=== PATIENT | male | born 1950 | race Caucasian/White ===

== ENCOUNTER 2019-03-03 05:20 | Inpatient (IN) | payer MEDICARE ==
[2019-03-03] VITALS (13 sets, daily range): BP systolic 91–127; BP diastolic 53–86
[~2019-03-03] VITALS: Ht 177.8 cm; Wt 87.6 kg
[~2019-03-03 05:20] MED LIST: APRESOLINE50 MG ORAL; ATORVASTATIN CA20 MG ORAL; GABAPENTIN300 MG ORAL; LEVOTHYROXINE75 MCG ORAL; METFORMIN HCL1000 M1 ORAL; METOPROLOL SUCC25 MG ORAL; NORCO 5-325 TA1 EACH ORAL
[2019-03-03] MEDS ORDERED: ceFAZolin 1gm IVPB IVPB ONE ×2 (06:00)
[2019-03-03] MEDS ORDERED: celeBREX 200mg Cap **SURGERY PATIENTS ONLY ORAL ONE (06:00)
[2019-03-03] MEDS ORDERED: oxyCONTIN 20mg tab ORAL ONE (06:00)
[2019-03-03] MEDS ORDERED: Duramorph PF 5mg/10ml amp ONE (06:19)
[2019-03-03] MEDS ORDERED: EPINEPHrine 1mg/1ml Amp ONE (06:19)
[2019-03-03] MEDS ORDERED: Bupivacaine 0.5% Inj 30 ml vial INJ ONE (06:20)
[2019-03-03] MEDS ORDERED: Alfentanil 2ml Inj ONE (06:23)
[2019-03-03] MEDS ORDERED: Bupivacaine w/Epi 0.5% 30ml Vial INJ ONE (06:27)
[2019-03-03] MEDS ORDERED: Bacitracin 50000 Units Vial ONE (06:28)
[2019-03-03] MEDS ORDERED: NeoSporin Gu Irrig 1ml Amp IRRIG ONE (06:28)
[2019-03-03] MEDS ORDERED: Tranexamic Acid 500 MG in NS 55 ML IV ONE (06:30)
[2019-03-03] MEDS ORDERED: Tranexamic Acid 1,000 MG in NS 65 ML IV ONE (06:30)
[2019-03-03] MEDS ORDERED: NS Irrig 2000ml IRRIG ONE (06:46)
[2019-03-03] MEDS ORDERED: Sodium Chloride 10ml vial INJ ONE (06:47)
[2019-03-03] MEDS ORDERED: Lidocaine 1% MPF 10mg/ml 5ml ONE (06:47)
[2019-03-03] MEDS ORDERED: Propofol 200mg/20ml IV ONE (06:47)
--- NOTE | 2019-03-03 06:48 | Pre-Procedure Note/Attestation ---
Pre-Procedure Note/Attestation Complete Prior to Procedure Planned Procedure: left Procedure Narrative: left total hip arthroplasty Indications for Procedure Pre-Operative Diagnosis: left hip arthritis Attestation I attest that I discussed the nature of the procedure; its benefits; risks and complications; and alternatives (and the risks and benefits of such alternatives ), prior to the procedure, with the patient (or the patient's legal claims representative). I attest that, if there was a reasonable possibility of needing a blood transfusion, the patient (or the patient's legal claims representative) was given the [facility] standardized written summary, pursuant to the Edmund Sravani Blood Safety Act ([place] Health and Safety Code # 1645, as amended). I attest that I re-evaluated the patient just prior to the surgery and that there has been no change in the patient's H&P, except as documented below: NONE Nicholas Templeton MD March 03, 2019 06:48
--- NOTE | 2019-03-03 06:53 | Anethesia Preoperative Eval ---
Anesthesia Pre-op PMH/ROS General Date of Evaluation: March 03, 2019 Time of Evaluation: 06:41 Anesthesiologist: Rj ASA Score: ASA 3 Mallampati Score Class I : Soft palate, uvula, fauces, pillars visible Class II: Soft palate, uvula, fauces visible Class III: Soft palate, base of uvula visible Class IV: Only hard plate visible Mallampati Classification: Class II Surgeon: Jareth Diagnosis: L Hip Pain Surgical Procedure: L Hip Toatal Arthroplasty Anesthesia History: none Family History: no anesthesia problems Allergies: Coded Allergies: No Known Allergies (Unverified , 03/02/19) Medications: see eMAR Patient NPO?: Yes NPO Date: March 02, 2019 NPO Time: 2229 Past Medical History Cardiovascular: Reports: HTN, other - HL Pulmonary: Reports: OUMAR Endocrine: Reports: DM, hypothyroidism Musculoskeletal/Integumentary: Reports: OA, edema - R Leg From Standing 16 Hours PSxH Narrative: Cholecystectomy, R Shoulder Arthroscopy Anesthesia Pre-op Phys. Exam Physician Exam Last Vital Signs Date Time Temp Pulse Resp B/P (MAP) Pulse Ox O2 Delivery O2 Flow Rate FiO2 03/03/19 06:25 Room Air 03/03/19 06:12 98.6 96 20 127/86 (100) 97 Constitutional: NAD Neurologic: CN 2-12 intact Cardiovascular: RRR Respiratory: CTA Gastrointestinal: S/NT/ND Airway Exam Mallampati Score: Class II MO: full ROM: full Teeth: intact Anesthesia Pre-op A/P Risk Assessment & Plan Assessment: ASA 3 Plan: Spinal, GA, SED Status Change Before Surgery: No Pre-Antibiotics Dru grams Ancef IV Given Within 1 Hr of Incision: Yes Time Given: 07:08 Goeffrey Leal MD March 03, 2019 06:53
[2019-03-03] MEDS ORDERED: Milk of Magnesia 30ml Ud ORAL PRN (07:00)
[2019-03-03] MEDS ORDERED: LR 1000ml ONE (07:00)
[2019-03-03] MEDS ORDERED: HYDROmorphone 1mg/ml Carpuject SUBQ PRN (07:00)
[2019-03-03] MEDS ORDERED: HYDROcodone/Acetamin 7.5/325 tab ORAL PRN ×2 (07:00→07:30)
[2019-03-03] MEDS ORDERED: NS Irrig 1000ml ONE (07:00)
[2019-03-03] MEDS ORDERED: Sterile Water Irrig 1000ml IRRIG ONE (07:00)
[2019-03-03] MEDS ORDERED: LR 1000ml 1,000 ML IVLG SCH (07:27)
[2019-03-03] MEDS ORDERED: fentaNYL 100 mcg/2 mL IV PRN (07:30)
[2019-03-03] MEDS ORDERED: Atropine Sulfate 0.4mg/ml inj IVP PRN (07:30)
[2019-03-03] MEDS ORDERED: LORazepam Inj 2mg/ml 1ml IV PRN (07:30)
[2019-03-03] MEDS ORDERED: Meperidine 50mg/ml Inj(FOR RIGORS ONLY) IVP PRN (07:30)
[2019-03-03] MEDS ORDERED: Labetalol 5mg/ml 20ml vial IV PRN (07:30)
[2019-03-03] MEDS ORDERED: Midazolam 2mg/2ml Inj IVP PRN (07:30)
[2019-03-03] MEDS ORDERED: Hydromorphone 0.5mg/0.5ml inj IVP PRN (07:30)
[2019-03-03] MEDS ORDERED: oxyCODONE HCL/Acetaminophen 5/325mg ORAL PRN (07:30)
[2019-03-03] MEDS ORDERED: DiphenhydrAMINE 50mg/ml Inj IVP PRN (07:30)
[2019-03-03] MEDS ORDERED: HYDROcodone/Acetamin 5/325 tab ORAL PRN ×2 (07:30→11:00)
[2019-03-03] MEDS ORDERED: ePHEDrine 50mg/ml Inj ONE (07:31)
--- NOTE | 2019-03-03 07:51 | Immediate Post-Op Evaluation ---
Immediate Post-Op Evalulation Immediate Post-Op Evalulation Procedure: L Hip Total Arthroplasty Date of Evaluation: March 03, 2019 Time of Evaluation: 09:42 IV Fluids: 1000 LR Blood Products: 0 Estimated Blood Loss: 75 Urinary Output: 200 Blood Pressure Systolic: 112 Blood Pressure Diastolic: 60 Pulse Rate: 86 Respiratory Rate: 16 O2 Sat by Pulse Oximetry: 1 Temperature (Fahrenheit): 99.1 Pain Score (1-10): 0 Nausea: No Vomiting: No Complications 0 Patient Status: awake, reacts, patent, none Hydration Status: adequate Dru grams Ancef IV Given Within 1 Hr of Incision: Yes Time Given: 07:08 Geoffrey Leal MD March 03, 2019 07:51
--- NOTE | 2019-03-03 09:25 | Brief Operative Note ---
Immediate Post Operative Note Operative Note Chief Complaint: left hip pain Pre-op Diagnosis: left hip arthritis Procedure: left total hip arthroplasty Post-op Diagnosis: same as pre-op Findings: consistent w/pre-op dx studies Surgeon: md kash Sewer Connector: rudy vasquez Anesthesiologist: md naomi Anesthesia: general Specimen: yes Complications: none Condition: stable Fluids: ns Estimated Blood Loss: minimal Drains: none Implant(s) used?: Yes Gege Vasquez March 03, 2019 09:25
--- NOTE | 2019-03-03 11:00 | NUR ---
NURSE NOTES: Received patient from HAYLEE Thorpe awake with out no distress LLE no sensation, and unable to move LE due to spinal blocks, surgical site dressing dry and intact with Ice pack, call light with in reach bed at low position locked, call light with in reach, family at bed side.
--- NOTE | 2019-03-03 11:19 | Diagnostic Imaging Report ---
Indication: Postop replacement Pelvic trauma and pain Findings: Single AP view of the pelvis was performed. Left total hip arthroplasty noted on the single view. Mehta catheter is present. There is no fracture or malalignment appreciated on this study. IMPRESSION: Limited evaluation after recent left total hip arthroplasty
--- NOTE | 2019-03-03 11:45 | Diagnostic Imaging Report ---
Indication: Intraoperative imaging right hip replacement Findings: Single AP view of the pelvis was performed. Intraoperative imaging of the pelvis demonstrating the right hip during total hip arthroplasty. The Scotty impression: Intraoperative imaging
[2019-03-03] MEDS: celeBREX 200mg Cap **SURGERY PATIENTS ONLY ORAL SCH (12:34)
[2019-03-03] MEDS: oxyCONTIN 20mg tab ORAL SCH ×2 (12:34→20:37)
[2019-03-03] MEDS: Docusate 100mg cap ORAL SCH ×2 (12:34→18:00)
--- NOTE | 2019-03-03 12:37 | NUR ---
CASE MANAGEMENT:REVIEW 68 YR OLD MALE HERE FOR SURGERY CC: LEFT HIP PAIN SI: LEFT HIP ARTHRITIS 98.6 96 20 127/86 97% ON RA IS: TO SURGERY FOR: LT TOTAL HIP ARTHROPLASTY IV ANCEF Q8HRS IVF@75/HR : TO MED/SURG 3 EAST DISCHARGE PLANNING PATIENT WILL REQUIRE HOME HEALTH FOR PHYSICAL THERAPY, WOUND CHECK AND OCCUPATIONAL THERAPY
--- NOTE | 2019-03-03 13:00 | NUR ---
NURSE NOTES: Patient has a full sensation and full strength no numbness and tingling will condition to monitor.
--- NOTE | 2019-03-03 14:33 | NUR ---
P.T Note: late entry 1245 P.T evaluation completed and treatment initiated POD #0 per ARABELLA protocol. Pt is awake, O x 4, vitals stable , no c/o nausea, nor pain nor dizziness however reports numbness and decreased sensation from L hip down to L foot secondary to spinal block/anaesthesia still in effect. Educated on proper mobility techniques to adhere with hip precautions prior to performing functional mobilities to include bed mobilities,transfers and gait/ambulation activities using the FWW. Pt currently required MIN A X 1 for bed mobilities, MIN A X 1 for transfers and MIN A X 1 for gait/ambulation activities using the FWW . Pt tolerated P.T evaluation/tx well w/o untoward incident. Vitals were stable during entire P.T session. POC will continue until [place]. Recommend home P.T at [place] with DME to include FWW since pt already has raised toilet seat with arm rest. Thank you for this referral.
[2019-03-03] MEDS: D5 1/2NS w/KCl 20mEq 1,000 ML IV SCH (15:46)
[2019-03-03] MEDS: ceFAZolin sod 2 GM in D5W 110 ML IV SCH ×2 (16:22→23:14)
[2019-03-03] MEDS ORDERED: Artificial Tears 1.4% Op Soln BOTH EYES PRN (17:15)
--- NOTE | 2019-03-03 17:45 | Operative Note - Dictated ---
DATE OF OPERATION: 03/03/2019 PREOPERATIVE DIAGNOSIS: Left hip end-stage arthritis. POSTOPERATIVE DIAGNOSIS: Left hip end-stage arthritis. PROCEDURE: Left total hip arthroplasty using a [place] system, size 6 Accolade 127 degree neck angle stem, size 52 mm acetabular cup with 2 dome screws and a 10 degree lipped ultra cross-linked poly and +0 36 mm femoral head. SURGEON: Nicholas Templeton M.D. CYBER SECURITY ANALYST: Gege Redd PA-C. ANESTHESIOLOGIST: Geoffrey Leal M.D. ANESTHESIA: Spinal anesthesia. ESTIMATED BLOOD LOSS: Less than 100 mL. COMPLICATIONS: None. BRIEF HISTORY: The patient is a pleasant 68-year-old gentleman who has had ongoing left hip arthritis. He was treated nonoperatively and failed. After full discussion of risks, benefits of surgery and complications associated with it including infection, bleeding, neurovascular complication, possibility of dislocation, possibility of leg length discrepancy, DVT, PEs, femur fractures, and continued pain and infection requiring resection arthroplasty, he opted for surgical treatment as described above. OPERATIVE PROCEDURE: The patient was brought to the operating room table. All pressure points well padded. Spinal anesthesia was induced. It should be noted that the patient was placed on the right lateral decubitus position with axillary roll and all pressure points well padded. He was stabilized with a pegboard. The left hip was then prepped and draped in usual sterile fashion. Preoperative antibiotics were given and tranexamic acid was given. Time-out was performed. At this point, the surgery was commenced. The standard posterior lateral incision to the hip was undertaken. The incision was taken through subcutaneous tissue. The tensor fascia was opened and gluteal fascia was opened. Charnley retractors were placed in. Short external rotators were then released and capsule was identified. The piriformis was identified. The piriformis was released and capsule was T'd and tagged for later repair. The hip was then dislocated. The femoral head was deformed and arthritic. A standard femoral neck cut was performed approximately 1 cm proximal to the lesser trochanter. The femoral head was removed and measured 48 mm. At this point, anterior acetabular retractors were placed and inferior acetabular retractors were placed. The labrum was resected and appropriate retractors were placed around the acetabulum. At this point, a reaming was performed initially medializing with a 45 mm reamer and subsequently with sequential reaming with approximately 40 degrees anteversion and [address] up to size 52 reamer. This provided excellent bleeding of the acetabulum. At this point, the acetabular trial was applied and it was very stable. Subsequently, a 52 mm hemispheric Trident cup with multiple dome screws was placed and malleted in in with the same anteversion and inclination as described previously. This provided excellent stability. Additional 2 dome screws, 1 measuring 20 mm, 1 measuring 25 mm were placed in without any complications. This provided security. Once this was completed, all wounds were thoroughly irrigated using copious amount of fluid. A ultra cross-linked polyethylene with 10 degree lip was then applied and was locked in without any complications. Once this was completed, the attention was then given to the femur. The retractors around the acetabulum was removed. A Antoine retractor was placed in to lift the femur up and the retractor was placed behind the lesser troch. Subsequently, using a [employer] cutter, the entry into the femur was lateralized. At this point, the intramedullary canal finder was used to find the canal. At this point, sequential broaching was performed from size [address] up to size 6. Size 6 provided excellent axial and rotational stability. Once this was completed, a 127 degree neck was then assembled and a 36 mm trial head with 0 neck length was applied. The entire construct was then reduced. The hip length appeared to be equal clinically. This was measured with contralateral knee and contralateral foot and heel. Subsequently, the range of motion was checked and appeared to be excellent flexion, excellent extension. The stability was checked at 0, 30 degrees, 45 degrees, and 90 degrees of flexion with internal rotation up to about 75 to 80 degrees and with no instability. At this point, the anterior stability was checked and appeared to be perfect. At this point, all wounds were thoroughly irrigated using copious amount of fluid. The intraoperative x-rays were obtained and the trial component and the acetabular component and the dome screws were in excellent position. The canal was filled with a size 6 Accolade broach. Leg lengths were measured from the lesser trochanter and considering the tilt to the pelvis, it appeared to be equal on x-rays as well. Therefore, all trial components were removed. The intramedullary canal was irrigated, acetabulum was irrigated, and all the soft tissues were irrigated using copious amounts of Simpulse irrigation. At this point, a size 6 Accolade stem was then placed in without any complication. Again, this provided excellent axial and rotational stability. The high offset stem was used. Subsequently, a +0 36 mm head was then applied on the Muir taper. Care was given to dry the Muir taper completely. The head was then malleted in and the stability was checked and rechecked, appeared to be perfect. At this point, the entire hip was then reduced and range of motion, leg lengths, and stability was checked and appeared to be excellent as described previously. The short external rotators were tied using #2 FiberWire suture through drill hole in the greater trochanter. The gluteal fascia and tensor fascia was closed using #1 Vicryl suture. The subcutaneous tissue was closed using 2-0 Vicryl suture. The skin was closed using 3-0 Monocryl suture. Sterile dressing was applied and the patient was taken to recovery room in stable condition. All lap counts and instrument counts were correct. Nicholas Templeton M.D. DR: SHIMA JOB#: [id number] CC:
[2019-03-03] MEDS ORDERED: Enoxaparin 40mg Inj SUBQ SCH (18:00)
[2019-03-03] MEDS: Aspirin Baby 81mg ORAL SCH (18:34)
[2019-03-03] MEDS: metFORMIN 500mg tab ORAL SCH (18:34)
[2019-03-03] MEDS: HYDROcodone/Acetamin 7.5/325 tab ORAL PRN (18:35)
[2019-03-03] MEDS: HydrALAZINE 50mg tab ORAL SCH (18:35)
--- NOTE | 2019-03-03 19:30 | NUR ---
NURSE NOTES: Report taken from HAYLEE Harper. Patient awake and in bed, A&Ox4. No signs of distress on room air, O2 available PRN. From surgery today, had spinal and general, patient has majority of sensation returned to Lt LE. Circulation good. IV site c/d/i and patent, running D5 1/2NS+20KCl at 75mls/hr. Surgical site dressing c/d/i. Mehta c/d/i and draining light yellow urine. BSC in room in case patient needs to have bowel movement. Bed in lowest position, call light within reach.
--- NOTE | 2019-03-03 19:52 | NUR ---
HAND-OFF: Report given to HAYLEE Wooten patient alert awake with out no distress.
[2019-03-04] VITALS: BP 96/59
[2019-03-04] MEDS: D5 1/2NS w/KCl 20mEq 1,000 ML IV SCH ×2 (00:50→07:10)
[2019-03-04] MEDS: HYDROcodone/Acetamin 5/325 tab ORAL PRN (01:40)
[2019-03-04 04:00] VITALS: BP 134/74
[2019-03-04] MEDS: Levothyroxine 25mcg tab ORAL SCH (05:54)
--- NOTE | 2019-03-04 07:25 | NUR ---
HAND-OFF: Report given to HAYLEE Harper. Patient is awake and in bed, VS stable. Total UO for night= 975cc.
[2019-03-04 07:30] LABS: BASOPHILS % (AUTO) 0.9 % (0.0-2.0); EOSINOPHILS % (AUTO) 4.2 % (0.0-3.0); HEMATOCRIT 29.3 % (42.0-52.0); LYMPHOCYTES % (AUTO) 8.7 % (20.0-45.0); MEAN CORPUSCULAR VOLUME 90 FL (80-99); MONOCYTES % (AUTO) 7.4 % (1.0-10.0); NEUTROPHILS % (AUTO) 78.7 % (45.0-75.0); PLATELET COUNT 174 K/UL (150-450); RED BLOOD COUNT 3.26 M/UL (4.70-6.10); RED CELL DISTRIBUTION WIDTH 12.6 % (11.6-14.8); WHITE BLOOD COUNT 5.6 K/UL (4.8-10.8)
[2019-03-04 07:39] LABS: ANION GAP 8 mmol/L (5-15); BLOOD UREA NITROGEN 22 mg/dL (7-18); CALCIUM 8.3 MG/DL (8.5-10.1); CARBON DIOXIDE 26 MMOL/L (21-32); CHLORIDE 106 MMOL/L (98-107); CREATININE 1.1 MG/DL (0.55-1.30); POTASSIUM 4.1 MMOL/L (3.5-5.1); SODIUM 140 MMOL/L (136-145)
--- NOTE | 2019-03-04 07:55 | NUR ---
NURSE NOTES: during shift change patient alert awake with out no distress, neuro check stable FC draining well abduction pillow in place DC FC order received will DC after patient finish breakfast
[2019-03-04 08:00] VITALS: BP 114/73
--- NOTE | 2019-03-04 08:08 | Orthopedic Progress Note ---
Orthopedic - Progress Note Subjective Symptoms: improved - worked well with PT yesterday Objective Laboratory Tests Test 03/04/19 07:05 White Blood Count 5.6 K/UL (4.8-10.8) Red Blood Count 3.26 M/UL (4.70-6.10) L Hemoglobin 10.0 G/DL (14.2-18.0) L Hematocrit 29.3 % (42.0-52.0) L Mean Corpuscular Volume 90 FL (80-99) Mean Corpuscular Hemoglobin 30.9 PG (27.0-31.0) Mean Corpuscular Hemoglobin Concent 34.2 G/DL (32.0-36.0) Red Cell Distribution Width 12.6 % (11.6-14.8) Platelet Count 174 K/UL (150-450) Mean Platelet Volume 7.3 FL (6.5-10.1) Neutrophils (%) (Auto) 78.7 % (45.0-75.0) H Lymphocytes (%) (Auto) 8.7 % (20.0-45.0) L Monocytes (%) (Auto) 7.4 % (1.0-10.0) Eosinophils (%) (Auto) 4.2 % (0.0-3.0) H Basophils (%) (Auto) 0.9 % (0.0-2.0) Sodium Level 140 MMOL/L (136-145) Potassium Level 4.1 MMOL/L (3.5-5.1) Chloride Level 106 MMOL/L (98-107) Carbon Dioxide Level 26 MMOL/L (21-32) Anion Gap 8 mmol/L (5-15) Blood Urea Nitrogen 22 mg/dL (7-18) H Creatinine 1.1 MG/DL (0.55-1.30) Estimat Glomerular Filtration Rate > 60 mL/min (>60) Glucose Level 141 MG/DL (74-106) H Calcium Level 8.3 MG/DL (8.5-10.1) L Last 24 Hour Vital Signs Date Time Temp Pulse Resp B/P (MAP) Pulse Ox O2 Delivery O2 Flow Rate FiO2 03/04/19 04:00 97.6 18 134/74 (94) 94 03/04/19 00:00 99.6 18 96/59 (71) 95 03/03/19 21:00 Room Air 03/03/19 20:00 98.7 77 20 99/55 (70) 95 03/03/19 19:05 98.0 03/03/19 18:35 106/61 03/03/19 16:31 98.0 78 17 106/61 (76) 95 03/03/19 13:04 98.4 03/03/19 12:00 98.1 85 18 109/60 (76) 98 03/03/19 11:30 97.2 83 19 108/81 (90) 95 03/03/19 10:50 98.1 85 18 99/58 (72) 96 03/03/19 10:20 98.4 88 20 102/62 100 Nasal Cannula 3 03/03/19 10:15 88 18 103/62 100 Nasal Cannula 3 03/03/19 10:05 92 20 91/61 100 Nasal Cannula 3 03/03/19 09:50 88 16 97/55 100 Nasal Cannula 3 03/03/19 09:40 87 17 100/55 100 Simple Mask 6 03/03/19 09:35 86 16 102/53 100 Simple Mask 6 03/03/19 09:31 99.1 86 16 112/60 100 Simple Mask 6 03/03/19 09:31 86 16 1 Intake and Output 03/03/19 03/04/19 18:59 06:59 Intake Total 1150 ml 450 ml Output Total 275 ml 550 ml Balance 875 ml -100 ml Intake Oral 450 ml IV Total 1150 ml Output Urine Total 200 ml 550 ml Estimated Blood Loss 75 ml Laboratory Tests Test 03/04/19 07:05 White Blood Count 5.6 K/UL (4.8-10.8) Red Blood Count 3.26 M/UL (4.70-6.10) L Hemoglobin 10.0 G/DL (14.2-18.0) L Hematocrit 29.3 % (42.0-52.0) L Mean Corpuscular Volume 90 FL (80-99) Mean Corpuscular Hemoglobin 30.9 PG (27.0-31.0) Mean Corpuscular Hemoglobin Concent 34.2 G/DL (32.0-36.0) Red Cell Distribution Width 12.6 % (11.6-14.8) Platelet Count 174 K/UL (150-450) Mean Platelet Volume 7.3 FL (6.5-10.1) Neutrophils (%) (Auto) 78.7 % (45.0-75.0) H Lymphocytes (%) (Auto) 8.7 % (20.0-45.0) L Monocytes (%) (Auto) 7.4 % (1.0-10.0) Eosinophils (%) (Auto) 4.2 % (0.0-3.0) H Basophils (%) (Auto) 0.9 % (0.0-2.0) Sodium Level 140 MMOL/L (136-145) Potassium Level 4.1 MMOL/L (3.5-5.1) Chloride Level 106 MMOL/L (98-107) Carbon Dioxide Level 26 MMOL/L (21-32) Anion Gap 8 mmol/L (5-15) Blood Urea Nitrogen 22 mg/dL (7-18) H Creatinine 1.1 MG/DL (0.55-1.30) Estimat Glomerular Filtration Rate > 60 mL/min (>60) Glucose Level 141 MG/DL (74-106) H Calcium Level 8.3 MG/DL (8.5-10.1) L Wound: clean, dry, intact Drains: none Neuro Status: normal Vascular Status: normal Additional Comments Xray reviewed Assessment Post-op Diagnosis POD 1 Procedure Performed left total hip arthroplasty Plan Plan: PT, discharge plan - likely home tomorrow, other - d/c tanesha d/c IVFs, DVT ppx with ASA BID and BL SCDs Gege Redd March 04, 2019 08:08
[2019-03-04] MEDS: Aspirin Baby 81mg ORAL SCH ×2 (08:38→17:46)
[2019-03-04] MEDS: oxyCONTIN 20mg tab ORAL SCH ×2 (08:38→20:31)
[2019-03-04] MEDS: Docusate 100mg cap ORAL SCH ×3 (08:38→17:46)
[2019-03-04] MEDS: metFORMIN 500mg tab ORAL SCH ×2 (08:38→17:46)
[2019-03-04] MEDS: Metoprolol Succinate XL 25mg tab ORAL SCH (08:39)
[2019-03-04] MEDS: celeBREX 200mg Cap **SURGERY PATIENTS ONLY ORAL SCH (08:39)
[2019-03-04] MEDS: HydrALAZINE 50mg tab ORAL SCH ×2 (08:39→17:46)
--- NOTE | 2019-03-04 09:00 | NUR ---
NURSE NOTES: FC removed patient tolerated the procedure well will monitor for voiding.
--- NOTE | 2019-03-04 10:41 | NUR ---
NURSE NOTES: AM scheduled pain medication given reported pain was 5/10 during reassessment pt. reported 6/10 and refused to walk with PT. pain reassessed and reported 7/10 surgical site Dilaudid 2mg given will continue to monitor.
--- NOTE | 2019-03-04 11:40 | NUR ---
*-* NO INSURANCE INFORMATION TO SEND CLINICALS OR REVIEWS *-* Addendum: 03/04/19 at 1500 by APURVA HUNT CM HEBERT:TUCKER P:[phone]
--- NOTE | 2019-03-04 11:45 | History and Physical Report ---
DATE OF ADMISSION: 03/03/2019 HISTORY: This is a 68-year-old [place] male who has past medical history of hypertension, history of renal failure and severe left hip arthritis with difficulty walking. He was treated conservatively and failed. The patient was seen by Dr. Templeton who recommended surgery. The patient had hip surgery on the left side. The patient is currently status post ORIF and progressing very well. The patient is currently walking. PAST MEDICAL HISTORY: Significant for severe arthritis. MEDICATIONS: See the list. ALLERGIES: NKA. PHYSICAL EXAMINATION: GENERAL: This is an elderly white male, currently in the bed, comfortable, eating lunch. VITAL SIGNS: Blood pressure is 130/70, pulse 74, and respirations 18. No fever. SKIN: Good skin turgor. HEENT: NAD. CHEST: Bilaterally clear. CARDIOVASCULAR: Regular rhythm. No gallop. No murmur. ABDOMEN: Soft. EXTREMITIES: Left hip tenderness. NEUROLOGIC: Generalized weakness. GENITOURINARY: Deferred. IMPRESSION: 1. Status post ORIF of left hip. 2. Degenerative arthritis. PLAN: 1. We will currently continue the DVT prophylaxis, Lovenox. 2. Continue pain medications. 3. PT and OT tomorrow. 4. Discussed with the charge nurse. Chris Guzmán M.D. DR: DENILSON JOB#: [id number] CC: RUTH
[2019-03-04 12:00] VITALS: BP 118/69
--- NOTE | 2019-03-04 14:23 | NUR ---
CASE MANAGEMENT:REVIEW 03/04/19 SI: POD #1 S/P LT TOTAL HIP ARTHROPLASTY 98.0 17 114/73 97% ON RA H/H-10.0/29.3 GLUCOSE+141 CA-8.3 IS: IVF@75/HR TOPROL XL PO QD SYNTHROID PO QD LIPITOR PO QHS ASA PO QD NEURONTIN PO BID HYDRALAZINE PO BID METFORMIN PO BID OXYCONTIN PO Q12 : MED/SURG STATUS 3 EAST
--- NOTE | 2019-03-04 14:30 | NUR ---
DISCHARGE PLANNING STRIP DEBURRER [place] GET [place] [facility] [place] DIS[place] PLANNING ON GOING Addendum: 03/04/19 at 1502 by LUPE VÁSQUEZ LVN LVN SPOKE WITH O STRIP DEBURRER TUCKER (T: [phone]) WHO STATED PATIENT WILL BE REFERRED TO [facility] TUCKER REQUESTED HOME HEALTH ORDER BE FAXED TO HER SO SHE CAN START WORKING ON THE HOME HEALTH
[2019-03-04] MEDS: HYDROcodone/Acetamin 7.5/325 tab ORAL PRN (15:18)
--- NOTE | 2019-03-04 15:45 | 48 Hour Post Anesthesia Eval ---
Post Anesthesia Evaluation Procedure: L Hip Total Arthroplasty Date of Evaluation: March 04, 2019 Time of Evaluation: 15:44 Blood Pressure Systolic: 116 0: 72 Pulse Rate: 68 Respiratory Rate: 20 Temperature (Fahrenheit): 97.8 O2 Sat by Pulse Oximetry: 99 Airway: patent Nausea: No Vomiting: No Pain Intensity: 3 Hydration Status: adequate Cardiopulmonary Status: stable Mental Status/LOC: patient returned to baseline Follow-up Care/Observations: n/a Post-Anesthesia Complications: none Follow-up care needed: N/A Edin Cortes MD March 04, 2019 15:45
[2019-03-04 16:29] VITALS: BP 115/72
--- NOTE | 2019-03-04 17:59 | NUR ---
NURSE NOTES: Pain subsiding per pt. reported 4/10 while on bed, voiding no pain or burning reported during urination. neuro chek stable.
--- NOTE | 2019-03-04 19:30 | NUR ---
NURSE NOTES: Report taken from HAYLEE Harper. Patient is awake and in bed, A&Ox4. No signs of distress on room air. Stating that since he has gotten out of bed, the pain has become worse, 05/06. Saw PT today and stated that he was struggling afterwards, but wants to continue to try and get out of bed to use bathroom. patient is voiding regularly. Surgical site c/d/i. Small area of erythema noted near the left knee. 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 IV site c/d/i and patent, running D5 1/2 NS+20KCl at 75mls/hr. Bed in lowest position, call light within reach.
--- NOTE | 2019-03-04 19:40 | NUR ---
HAND-OFF: Report given to HAYLEE Wooten patient stable condition.
[2019-03-04 20:00] VITALS: BP 135/76
--- NOTE | 2019-03-04 20:15 | Progress Note ---
DATE: 03/04/2019 SUBJECTIVE: This is a 68-year-old male, who has had ORIF of the left hip. The patient had physical therapy this morning and had a lot of pain. OBJECTIVE: GENERAL: Alert and oriented x3, in no distress. VITAL SIGNS: Stable. CHEST: Bilaterally clear. CARDIOVASCULAR: Regular rhythm. No gallop. No murmur. ABDOMEN: Soft. Positive bowel sounds. Nontender. EXTREMITIES: No CCE. NEUROLOGICAL: Generalized weakness. ASSESSMENT: 1. Status post ORIF. 2. Hypertension. 3. Degenerative arthritis. PLAN: 1. We will currently continue regular diet. 2. Continue morphine. 3. Continue pain management. 4. Continue [place]. 5. PT and OT. 6. Discussed with the patient and charge nurse. Chris Guzmán M.D. DR: DENILSON JOB#: [id number] CC: RUTH
[2019-03-05] VITALS: BP 131/80
[2019-03-05] MEDS: D5 1/2NS w/KCl 20mEq 1,000 ML IV SCH (01:47)
[2019-03-05] MEDS: HYDROcodone/Acetamin 5/325 tab ORAL PRN ×3 (01:47→22:49)
[2019-03-05 04:00] VITALS: BP 121/66
[2019-03-05] MEDS: Levothyroxine 25mcg tab ORAL SCH (05:52)
--- NOTE | 2019-03-05 07:19 | Orthopedic Progress Note ---
Orthopedic - Progress Note Subjective Symptoms: c/o post-op hip pain Additional Comments Did ok yesterday with PT. Slow with ambulation Objective Last 24 Hour Vital Signs Date Time Temp Pulse Resp B/P (MAP) Pulse Ox O2 Delivery O2 Flow Rate FiO2 03/05/19 04:00 98.6 84 17 121/66 (84) 96 03/05/19 00:00 98.5 84 17 131/80 (97) 100 03/04/19 21:00 Room Air 03/04/19 20:00 98.7 89 19 135/76 (95) 100 03/04/19 17:46 115/72 03/04/19 16:29 98.2 83 18 115/72 (86) 96 03/04/19 15:45 68 20 99 03/04/19 12:00 98.2 80 17 118/69 (85) 95 03/04/19 11:06 97.6 03/04/19 09:00 Room Air 03/04/19 08:39 97 114/73 03/04/19 08:39 114/73 03/04/19 08:00 98.0 17 114/73 (87) 97 Intake and Output 03/04/19 03/05/19 19:00 07:00 Intake Total 1200 ml Output Total 700 ml 350 ml Balance -700 ml 850 ml Intake Oral 1200 ml Output Urine Total 700 ml 350 ml # Voids 1 1 Laboratory Tests Test 03/05/19 06:00 White Blood Count Pending Red Blood Count Pending Hemoglobin Pending Hematocrit Pending Mean Corpuscular Volume Pending Mean Corpuscular Hemoglobin Pending Mean Corpuscular Hemoglobin Concent Pending Red Cell Distribution Width Pending Platelet Count Pending Mean Platelet Volume Pending Neutrophils (%) (Auto) Pending Lymphocytes (%) (Auto) Pending Monocytes (%) (Auto) Pending Eosinophils (%) (Auto) Pending Basophils (%) (Auto) Pending Wound: clean, dry Drains: none Neuro Status: normal Assessment Post-op Diagnosis Left ARABELLA Plan Plan: PT, pain management, discharge plan Additional Comments Doing well. Discussed discharge today vs tomorrow and patient would like to see how he does with PT today for possible discharge. Will check again at 2pm. If not discharged today, then will discharge tomorrow. DVT prophylaxis with ASA and jessica hose and sequentials. No Lovenox necessary Nicholas Templeton MD March 05, 2019 07:19
[2019-03-05 07:22] LABS: HEMATOCRIT 31.9 % (42.0-52.0); HEMOGLOBIN 10.9 G/DL (14.2-18.0); MEAN CORPUSCULAR VOLUME 90 FL (80-99); PLATELET COUNT 196 K/UL (150-450); RED BLOOD COUNT 3.54 M/UL (4.70-6.10); RED CELL DISTRIBUTION WIDTH 12.8 % (11.6-14.8); WHITE BLOOD COUNT 6.3 K/UL (4.8-10.8)
--- NOTE | 2019-03-05 07:22 | NUR ---
HAND-OFF: Report given to HAYLEE Alfonso. Patient awake and in bed. VS stable.
--- NOTE | 2019-03-05 07:30 | NUR ---
NURSE NOTES: Patient lying in bed awake. Complain of pain 7/10 on surgical site. Will administer pain medication as ordered. Surgical dressing intact and dry. IV dressing intact and dry. Bed lowest position. Call light within reach. Will continue to monitor.
[2019-03-05 08:00] VITALS: BP 143/81
--- NOTE | 2019-03-05 08:34 | NUR ---
CASE MANAGEMENT:REVIEW 03/05/19 SI: POD #2 S/P LT TOTAL HIP ARTHROPLASTY 98.6 84 17 121/66 96% ON RA H/H-10.9/31.9 IS: IVF@75/HR TOPROL XL PO QD SYNTHROID PO QD LIPITOR PO QHS ASA PO QD NEURONTIN PO BID HYDRALAZINE PO BID METFORMIN PO BID OXYCONTIN PO Q12 : MED/SURG STATUS 3 [facility] PL[facility]: PATIENT TO HAVE 2 PT SESSIONS TODAY (2ND EARLY AFTERNOON) PLEASE CONTACT DR TORRES AROUND 2PM TO SEE IF PATIENT HAS DONE WELL TO BE DISCHARGED TODAY. OTHERWISE DISCHARGE TOMORROW AM
[2019-03-05] MEDS: Aspirin Baby 81mg ORAL SCH ×2 (08:46→17:45)
[2019-03-05] MEDS: Metoprolol Succinate XL 25mg tab ORAL SCH (08:47)
[2019-03-05] MEDS: Docusate 100mg cap ORAL SCH ×3 (08:47→17:45)
[2019-03-05] MEDS: oxyCONTIN 20mg tab ORAL SCH ×2 (08:47→20:25)
[2019-03-05] MEDS: celeBREX 200mg Cap **SURGERY PATIENTS ONLY ORAL SCH (08:47)
[2019-03-05] MEDS: metFORMIN 500mg tab ORAL SCH ×2 (08:48→17:45)
[2019-03-05] MEDS: HydrALAZINE 50mg tab ORAL SCH ×2 (08:48→17:45)
[2019-03-05 12:00] VITALS: BP 111/58
--- NOTE | 2019-03-05 14:30 | NUR ---
NURSE NOTES: Spoke to regarding patient and ok to discharge patient tomorrow.
[2019-03-05 16:00] VITALS: BP 110/70
--- NOTE | 2019-03-05 19:20 | NUR ---
HAND-OFF: Report given to Jacki LEACH. Patient in stable condition.
--- NOTE | 2019-03-05 19:32 | NUR ---
NURSE NOTES: Received patient awake,alert,verbal,resting in bed comfortably without complaints.
[2019-03-05 20:00] VITALS: BP 135/69
[2019-03-06] VITALS: BP 132/72
[2019-03-06 04:00] VITALS: BP 131/67
[2019-03-06] MEDS: Levothyroxine 25mcg tab ORAL SCH (05:52)
[2019-03-06] MEDS: HYDROcodone/Acetamin 5/325 tab ORAL PRN (05:53)
[2019-03-06 06:39] LABS: BASOPHILS % (AUTO) 0.8 % (0.0-2.0); EOSINOPHILS % (AUTO) 6.3 % (0.0-3.0); HEMATOCRIT 31.2 % (42.0-52.0); HEMOGLOBIN 10.8 G/DL (14.2-18.0); LYMPHOCYTES % (AUTO) 14.7 % (20.0-45.0); MEAN CORPUSCULAR VOLUME 90 FL (80-99); MONOCYTES % (AUTO) 7.4 % (1.0-10.0); NEUTROPHILS % (AUTO) 70.8 % (45.0-75.0); PLATELET COUNT 208 K/UL (150-450); RED BLOOD COUNT 3.48 M/UL (4.70-6.10); RED CELL DISTRIBUTION WIDTH 12.5 % (11.6-14.8); WHITE BLOOD COUNT 6.1 K/UL (4.8-10.8)
--- NOTE | 2019-03-06 07:14 | NUR ---
HAND-OFF: Report given to HAYLEE Harris.
--- NOTE | 2019-03-06 07:25 | NUR ---
NURSE NOTES: Received report from HAYLEE Echeverria. Rounding done with outgoing nurse. Patient a/o x4 lying on the bed. No respiratory distress noted. c/o left knee pain as 4/10 and pain medicine was given around 0530 by night warehouse manager nurse. Left surgical hip site dressing is dry and intact. Questions answered. Bed in lowest position, call light within reach. Will continue to monitor.
[2019-03-06 08:00] VITALS: BP 128/68
--- NOTE | 2019-03-06 08:02 | Orthopedic Progress Note ---
Orthopedic - Progress Note Subjective Symptoms: improved Objective Laboratory Tests Test 03/06/19 05:27 White Blood Count 6.1 K/UL (4.8-10.8) Red Blood Count 3.48 M/UL (4.70-6.10) L Hemoglobin 10.8 G/DL (14.2-18.0) L Hematocrit 31.2 % (42.0-52.0) L Mean Corpuscular Volume 90 FL (80-99) Mean Corpuscular Hemoglobin 31.0 PG (27.0-31.0) Mean Corpuscular Hemoglobin Concent 34.6 G/DL (32.0-36.0) Red Cell Distribution Width 12.5 % (11.6-14.8) Platelet Count 208 K/UL (150-450) Mean Platelet Volume 7.1 FL (6.5-10.1) Neutrophils (%) (Auto) 70.8 % (45.0-75.0) Lymphocytes (%) (Auto) 14.7 % (20.0-45.0) L Monocytes (%) (Auto) 7.4 % (1.0-10.0) Eosinophils (%) (Auto) 6.3 % (0.0-3.0) H Basophils (%) (Auto) 0.8 % (0.0-2.0) Last 24 Hour Vital Signs Date Time Temp Pulse Resp B/P (MAP) Pulse Ox O2 Delivery O2 Flow Rate FiO2 03/06/19 06:25 98.5 03/06/19 04:00 98.5 83 20 131/67 (88) 97 03/06/19 00:00 98.7 76 19 132/72 (92) 98 03/05/19 20:59 Room Air 03/05/19 20:58 98.2 03/05/19 20:00 98.9 81 17 135/69 (91) 98 03/05/19 17:45 110/70 03/05/19 16:00 98.2 80 19 110/70 (83) 97 03/05/19 12:00 98.6 84 20 111/58 (75) 95 03/05/19 09:00 Room Air 03/05/19 08:48 143/81 03/05/19 08:47 91 143/81 Laboratory Tests Test 03/06/19 05:27 White Blood Count 6.1 K/UL (4.8-10.8) Red Blood Count 3.48 M/UL (4.70-6.10) L Hemoglobin 10.8 G/DL (14.2-18.0) L Hematocrit 31.2 % (42.0-52.0) L Mean Corpuscular Volume 90 FL (80-99) Mean Corpuscular Hemoglobin 31.0 PG (27.0-31.0) Mean Corpuscular Hemoglobin Concent 34.6 G/DL (32.0-36.0) Red Cell Distribution Width 12.5 % (11.6-14.8) Platelet Count 208 K/UL (150-450) Mean Platelet Volume 7.1 FL (6.5-10.1) Neutrophils (%) (Auto) 70.8 % (45.0-75.0) Lymphocytes (%) (Auto) 14.7 % (20.0-45.0) L Monocytes (%) (Auto) 7.4 % (1.0-10.0) Eosinophils (%) (Auto) 6.3 % (0.0-3.0) H Basophils (%) (Auto) 0.8 % (0.0-2.0) Wound: clean, dry, intact Drains: none Neuro Status: normal Vascular Status: normal Assessment Post-op Diagnosis POD 3 Procedure Performed left total hip arthroplasty Plan Plan: discharge to home - has outpt meds, ASA for DVT ppx, Home care and DME. f /u Dr. Templeton 7-10 days as outpt Gege Redd March 06, 2019 08:02
--- NOTE | 2019-03-06 08:03 | Discharge Summary ---
Discharge Summary Hospital Course Date of Admission March 03, 2019 at 05:20 Date of Discharge 03/06/19 Admitting Diagnosis left hip arthritis Reason for Hospitalization: s/p left dequan IAM Garcia is a 68 year old male who was admitted on March 03, 2019 at 05: 20 for Primary Osteoarthritis Of Left Hip Consultations MD rayne Procedures left dequan Hospital Course benign Discharge Condition Upon Discharge: improving, stable Discharge Disposition Patient was discharged to home with home PT/DME Gege Redd March 06, 2019 08:03
[2019-03-06] MEDS: celeBREX 200mg Cap **SURGERY PATIENTS ONLY ORAL SCH (08:44)
[2019-03-06] MEDS: Aspirin Baby 81mg ORAL SCH ×2 (08:44→17:20)
[2019-03-06] MEDS: HydrALAZINE 50mg tab ORAL SCH ×2 (08:45→17:20)
[2019-03-06] MEDS: Docusate 100mg cap ORAL SCH ×3 (08:45→17:20)
[2019-03-06] MEDS: Metoprolol Succinate XL 25mg tab ORAL SCH (08:45)
[2019-03-06] MEDS: metFORMIN 500mg tab ORAL SCH ×2 (08:45→17:21)
[2019-03-06] MEDS: oxyCONTIN 20mg tab ORAL SCH ×2 (08:45→20:48)
--- NOTE | 2019-03-06 09:02 | NUR ---
CASE MANAGEMENT:REVIEW 03/06/19 SI: POD #3 S/P LT TOTAL HIP ARTHROPLASTY 98.8 81 17 128/68 97% ON RA H/H-10.8/31.2 IS: TOPROL XL PO QD SYNTHROID PO QD LIPITOR PO QHS ASA PO QD NEURONTIN PO BID HYDRALAZINE PO BID METFORMIN PO BID OXYCONTIN PO Q12 : MED/SURG STATUS 3 [facility]: DISCHARGE HOME TODAY MESSAGE LEFT FOR JARRED CEBALLOS REGARDING HOME HEALTH REQUEST FOR PHYSICAL THERAPY AND NURSE VISIT
--- NOTE | 2019-03-06 09:15 | NUR ---
DISCHARGE PLAN DISCHARGE ORDER NOTED MESSAGE LEFT FOR [employer] QUALITY MANAGER REGARDING HOME HEALTH
--- NOTE | 2019-03-06 10:15 | NUR ---
DISCHARGE PLAN EMTS TUCKER FROM [facility] WILL ARRANGE HOME HEALTH FOR PATIENT AND CONTACT HIM AT HOME REGARDING THE ARRANGEMENTS NOEMY INIGUEZ OF [facility] T: [phone] PATIENT CAN DISCHARGE HOME
--- NOTE | 2019-03-06 10:48 | NUR ---
NURSE NOTES: Called Dr. Guzmán regarding reconcile meds. Informed all medicine name and dosage. MD ordered continue all home meds. Noted and carried out.
[2019-03-06 12:00] VITALS: BP 125/71
[2019-03-06] MEDS: HYDROcodone/Acetamin 7.5/325 tab ORAL PRN ×2 (13:01→18:06)
--- NOTE | 2019-03-06 13:04 | NUR ---
*-* INSURANCE *-* CLINICALS AND REVIEWS HAVE BEEN FAXED TO: RUPA STERN:TUCKER P:[phone] F:[phone]
[2019-03-06 16:00] VITALS: BP 147/76
--- NOTE | 2019-03-06 19:33 | NUR ---
HAND-OFF: Report given to HAYLEE Guillen.
--- NOTE | 2019-03-06 19:34 | NUR ---
NURSE NOTES: Received report & pt from HAYLEE Mg. Ptlying in bed, a&ox4, in room air. No s/s of acute distress & no c/o pain at this time. Pt scheduled to be D/C'd tonight at around 8PM, waiting for ride. D/C papers prepared & will have pt sign. Surgical dressing C/D/I. IV site intact & S/L'd. Will D/C IV later. Bed in lowest position, call light within reach. Will continue to monitor.
[2019-03-06 20:00] VITALS: BP 133/77
--- NOTE | 2019-03-06 21:20 | NUR ---
DISCHARGE NOTE: D/C'd pt to home as ordered. Pt a&ox4, still denies pain. D/C'd IV. Pt belongings signed at D/C. D/C papers signed & D/C instructions given to pt. Surgical dressing C/D/I. RN addressed all questions by pt. Brought pt down via w/c accompanied by RN, & pt's daughter to private vehicle.
== END 2019-03-06 21:25 | disposition home health service (06) | DRG 470 ==
LOC: SDSOVERFLO 05:20 → 3E 10:27
PROC: 0SRB0JA Replacement of Left Hip Joint with Synthetic Substitute, Uncemented, Open Approach (ICD-10-PCS; principal; 2019-03-03 07:00)
DX: M16.12 Unilateral primary osteoarthritis, left hip (principal); I10 Essential (primary) hypertension
CPT/HCPCS: 36415; 72170; 80048; 82962; 85007; 85025; 86850; 86900; 86901; 87081; 94003; 94150; J2405; J3490